=== PATIENT | male | born 1980 | race African-American/Black ===

== ENCOUNTER 2017-06-27 18:58 | Emergency (ER) | payer OTHER ==
[2017-06-27 19:03] VITALS: BP 131/83; PULSE 68; TEMP 98; BMI 28.7
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
[2017-06-27] MEDS ORDERED: IBUPROFEN 400 MG TABLET (FP) PO ONE ×2 (19:43→19:46)
== END 2017-06-27 20:04 | disposition home or self-care (01) ==
LOC: JERFT 18:58
DX: S39.012A Strain of muscle, fascia and tendon of lower back, initial encounter (principal); V43.52XA Car driver injured in collision with other type car in traffic accident, initial encounter; Y92.414 Local residential or business street as the place of occurrence of the external cause; Y93.89 Activity, other specified; Y99.8 Other external cause status
CPT/HCPCS: 99281-25

== ENCOUNTER 2018-10-06 19:24 | Emergency (ER) | payer OTHER | END 2018-10-07 00:40 | disposition home or self-care (01) | LOC: JER 10-07 00:40 | PROC: 3E0333Z Introduction of Anti-inflammatory into Peripheral Vein, Percutaneous Approach (ICD-10-PCS; principal; 2018-10-06) | DX: F07.81 Postconcussional syndrome (principal); V47 Car occupant injured in collision with fixed or stationary object; W06.XXXA Fall from bed, initial encounter; Y93.89 Activity, other specified; Y92.032 Bedroom in apartment as the place of occurrence of the external cause ==

== ENCOUNTER 2018-11-23 11:25 | Emergency (ER) | payer OTHER ==
[2018-11-23 11:32] VITALS: TEMP 98; BMI 27.5
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
[2018-11-23] MEDS ORDERED: METOCLOPRAMIDE HCL INJECTION 10 MG/2 ML VIAL IVPUSH ONE (11:40)
[2018-11-23] MEDS ORDERED: ACETAMINOPHEN 1000 MG/100 ML VIAL (NON FORMULARY) IVPB ONE (11:40)
[2018-11-23] MEDS ORDERED: SODIUM CHLORIDE 1,000 ML IV STA (11:40)
[2018-11-23] MEDS ORDERED: ACETAMINOPHEN INJECTION 100 ML IVPB ONE (11:46)
[2018-11-23] MEDS ORDERED: METOCLOPRAMIDE HCL INJECTION 10 MG/2 ML VIAL ONE (11:46)
[2018-11-23 12:16] LABS: BASO % 0.2 % (0-2.0); EOS % 0.1 % (0-4.5); HEMATOCRIT 41.9 % (35.4-49); LYMPH % 8.7 % (8-40); MCH 32.7 pg (25.7-33.7); MCHC 33.4 g/dl (32.0-35.9); MEAN CELL VOLUME 97.9 fl (80-96); MEAN PLT VOLUME 6.8 fl (7.5-11.1); MONO % 5.6 % (3.8-10.2); NEUT % 85.4 % (42.8-82.8); PLATELET COUNT 195 K/MM3 (134-434); RBC 4.28 M/mm3 (4.00-5.60); RDW 13.1 % (11.9-15.9); WHITE BLOOD COUNT 9.4 K/mm3 (4.0-10.0)
[2018-11-23] MEDS ORDERED: KETOROLAC TROMETHAMINE 30 MG/1 ML VIAL IVPUSH ONE (12:23)
[2018-11-23 12:42] LABS: ALBUMIN 3.6 g/dl (3.4-5.0); BILIRUBIN,TOTAL 0.6 mg/dL (0.2-1); BLOOD UREA NITROGEN 16.2 mg/dL (7-18); CALCIUM 9.2 mg/dL (8.5-10.1); CREATININE 1.2 mg/dL (0.55-1.3); TOT PROT 6.8 g/dl (6.4-8.2)
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
[2018-11-23 17:18] VITALS: BP 135/85; PULSE 74
[2018-11-23] MEDS ORDERED: LIDOCAINE 5% TOPICAL PATCH TP ONE (17:20)
[2018-11-23] MEDS ORDERED: LIDOCAINE 5% TOPICAL PATCH ONE (17:31)
[2018-11-23] MEDS ORDERED: LIDOCAINE PATCH REMOVAL MC SCH (22:00)
== END 2018-11-23 17:44 | disposition home or self-care (01) ==
LOC: JER 11:25
PROC: 3E033NZ Introduction of Analgesics, Hypnotics, Sedatives into Peripheral Vein, Percutaneous Approach (ICD-10-PCS; principal; 2018-11-23)
PROC: 3E0333Z Introduction of Anti-inflammatory into Peripheral Vein, Percutaneous Approach (ICD-10-PCS; 2018-11-23)
PROC: 3E033GC Introduction of Other Therapeutic Substance into Peripheral Vein, Percutaneous Approach (ICD-10-PCS; 2018-11-23)
PROC: 3E033GC Introduction of Other Therapeutic Substance into Peripheral Vein, Percutaneous Approach (ICD-10-PCS; 2018-11-23)
DX: R51 Headache (principal); M54.2 Cervicalgia; G89.29 Other chronic pain; Z87.820 Personal history of traumatic brain injury; V89.2XXS Person injured in unspecified motor-vehicle accident, traffic, sequela
CPT/HCPCS: 36415; 70450-TC; 72125-TC; 72131-TC; 80053; 85025; 99282-25; J0131; J7030

== ENCOUNTER 2019-04-10 03:20 | Emergency (ER) | payer OTHER ==
[2019-04-10 05:03] VITALS: BP 135/82; PULSE 79; TEMP 97.9; BMI 28.7
--- NOTE | 2019-04-10 05:22 | PDOC ---
Attending Attestation - Resident Resident Name: Dav Chacko - ED Attending Attestation I have performed the following: I have examined & evaluated the patient, The case was reviewed & discussed with the resident, I agree w/resident's findings & plan - HPI HPI: 04/10/19 05:42 see resident hpi - Physicial Exam PE: 04/10/19 05:42 see resident exam - Medical Decision Making 04/10/19 05:42 38-year-old male currently under the care of pain management requesting analgesic so he does not have to go by narcotics illegally in the street Patient sleeping, he had to be woken up for his exam complaining of chronic pain He interestingly enough has an appointment with pain management on Sunday He will be discharged with nonnarcotic analgesics including a Lidoderm patch
[2019-04-10] MEDS ORDERED: IBUPROFEN 400 MG TABLET (FP) PO ONE (05:44)
[2019-04-10] MEDS ORDERED: ACETAMINOPHEN 325 MG TABLET (FP) PO ONE (05:44)
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
[2019-04-10] MEDS ORDERED: LIDOCAINE 5% TOPICAL PATCH TP ONE (05:45)
[2019-04-10] MEDS ORDERED: ACETAMINOPHEN 325 MG TABLET (FP) ONE (05:58)
[2019-04-10] MEDS ORDERED: LIDOCAINE 5% TOPICAL PATCH ONE (05:59)
[2019-04-10] MEDS ORDERED: IBUPROFEN 600 MG TABLET (FP) PO ONE (06:00)
[2019-04-10] MEDS ORDERED: LIDOCAINE PATCH REMOVAL MC SCH (22:00)
== END 2019-04-10 06:21 | disposition home or self-care (01) ==
LOC: JER 03:20
DX: M54.2 Cervicalgia (principal); M54.5 Low back pain; G89.29 Other chronic pain
CPT/HCPCS: 99282-25

== ENCOUNTER 2019-04-12 23:24 | Emergency (ER) | payer OTHER ==
[2019-04-12 23:52] VITALS: BMI 28.7
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
[2019-04-13 01:28] VITALS: BP 143/96; PULSE 65; TEMP 98.2
== END 2019-04-13 01:33 | disposition home or self-care (01) ==
LOC: JER 23:24
DX: G89.29 Other chronic pain (principal); M54.2 Cervicalgia; M54.5 Low back pain; V89.2XXS Person injured in unspecified motor-vehicle accident, traffic, sequela
CPT/HCPCS: 99282-25

== ENCOUNTER 2019-04-16 10:44 | Emergency (ER) | payer OTHER ==
[2019-04-16 11:04] VITALS: BP 144/90; PULSE 76; TEMP 98.2; BMI 29.5
--- NOTE | 2019-04-16 12:11 | PDOC ---
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 here for exacerbation Past History - Past Medical History Allergies/Adverse Reactions: Allergies Allergy/AdvReac Type Severity Reaction Status Date / Time No Known Allergies Allergy Verified 04/16/19 11:01 Home Medications: Ambulatory Orders Ibuprofen [Motrin -] 600 mg PO QID #28 tablet 10/06/18 Lidocaine 5% Patch [Lidoderm Patch -] 1 patch TP DAILY #7 patch 11/23/18 Oxycodone HCl/Acetaminophen [Percocet 5-325 mg Tablet] 1 tab PO PRN 11/23/18 Oxycodone HCl 10 mg PO TID PRN #9 tablet MDD 3 04/16/19 COPD: No - Immunization History Td Vaccination: Yes TDAP Vaccination: Yes Immunization Up to Date: Yes - Psycho Social/Smoking Cessation Hx Smoking History: Never smoked Have you smoked in the past 12 months: Yes Number of Cigarettes Smoked Daily: 2 Hx Alcohol Use: Yes Drug/Substance Use Hx: No Substance Use Type: None Review of Systems - Review of Systems Constitutional: Yes: See HPI *Physical Exam - Vital Signs Last Vital Signs Temp Pulse Resp BP Pulse Ox 98.2 F 76 20 144/90 99 04/16/19 11:01 04/16/19 11:01 04/16/19 11:01 04/16/19 11:01 04/16/19 11:01 - Physical Exam 04/16/19 12:09 GENERAL: The patient is awake, alert, and fully oriented, in no acute distress. HEAD: Normal with no signs of trauma. EYES: sclera anicteric, conjunctiva clear. ENT: Ears normal tympanic membranes normal oropharynx clear uvula midline NECK: Normal range of motion LUNGS: Breath sounds equal, clear to auscultation bilaterally. No wheezes, and no crackles. HEART: S1 and S2 without murmur, rub or gallop. ABDOMEN: Soft, nontender, normoactive bowel sounds. No guarding, no rebound. No masses. EXTREMITIES: Normal range of motion, no edema. No clubbing or cyanosis. No cords, erythema, or tenderness. NEUROLOGICAL: Cranial nerves II through XII grossly intact. PSYCH: Normal mood, normal affect. SKIN: Warm, Dry, normal turgor, no rashes or lesions noted. Medical Decision Making - Medical Decision Making 04/16/19 12:09 After long conversation with this patient he tells me he has liver disease it sounds like polycystic liver disease he is on high-dose Motrin at this point I was going to add a steroid however we have come to an agreement where I will give him a couple days of oxycodone to reset his pain cycle and hopefully get him out of pain. He has an appointment with pain management next week Discharge - Discharge Information Problems reviewed: Yes Clinical Impression/Diagnosis: Chronic pain Condition: Stable Disposition: HOME - Admission No - Additional Discharge Information Prescriptions: Oxycodone HCl 10 mg PO TID PRN #9 tablet MDD 3 PRN Reason: Pain - Follow up/Referral - Patient Discharge Instructions Additional Instructions: Return to the emergency room for worsening symptoms and without fail follow-up with pain management as scheduled. Please take the pain medication as directed. - Post Discharge Activity
== END 2019-04-16 12:15 | disposition home or self-care (01) ==
LOC: JERFT 10:44
DX: G89.29 Other chronic pain (principal)
CPT/HCPCS: 99282-25

== ENCOUNTER 2019-04-20 08:56 | Emergency (ER) | payer OTHER ==
[2019-04-20 09:03] VITALS: BP 137/92; PULSE 56; TEMP 97.6; BMI 29.5
[2019-04-20] MEDS ORDERED: KETOROLAC TROMETHAMINE 60 MG/2 ML VIAL IM ONE (09:46)
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
[2019-04-20] MEDS ORDERED: KETOROLAC TROMETHAMINE 60 MG/2 ML VIAL ONE (10:21)
== END 2019-04-20 10:33 | disposition home or self-care (01) ==
LOC: JER 08:56
DX: M25.531 Pain in right wrist (principal); F17.210 Nicotine dependence, cigarettes, uncomplicated
CPT/HCPCS: 99284-25

== ENCOUNTER 2019-04-22 12:33 | Emergency (ER) | payer OTHER ==
[2019-04-22 13:04] VITALS: BP 101/69; PULSE 63; TEMP 98.5; BMI 28.7
--- NOTE | 2019-04-22 13:29 | PDOC ---
History of Present Illness - General Chief Complaint: Pain Stated Complaint: BODY PAIN Time Seen by Provider: 04/22/19 13:17 History Source: Patient - History of Present Illness Occurred: reports: other Pain Location: reports: back Past History - Past Medical History Allergies/Adverse Reactions: Allergies Allergy/AdvReac Type Severity Reaction Status Date / Time No Known Allergies Allergy Verified 04/20/19 09:03 Home Medications: Ambulatory Orders Ibuprofen [Motrin -] 600 mg PO QID #28 tablet 10/06/18 Lidocaine 5% Patch [Lidoderm Patch -] 1 patch TP DAILY #7 patch 11/23/18 Oxycodone HCl/Acetaminophen [Percocet 5-325 mg Tablet] 1 tab PO PRN 11/23/18 Oxycodone HCl 10 mg PO TID PRN #9 tablet MDD 3 04/16/19 COPD: No - Immunization History Td Vaccination: Yes TDAP Vaccination: Yes Immunization Up to Date: Yes - Psycho Social/Smoking Cessation Hx Smoking History: Current every day smoker Have you smoked in the past 12 months: Yes Number of Cigarettes Smoked Daily: 2 Cigars Per Day: 2 Information on smoking cessation initiated: Yes Hx Alcohol Use: No Drug/Substance Use Hx: No Substance Use Type: None Review of Systems - Review of Systems Constitutional: No: Chills, Fever Musculoskeletal: Yes: Back Pain Neurological: No: Numbness, Tingling, Weakness *Physical Exam - Vital Signs Last Vital Signs Temp Pulse Resp BP Pulse Ox 98.5 F 63 18 101/69 99 04/22/19 12:59 04/22/19 12:59 04/22/19 12:59 04/22/19 12:59 04/22/19 12:59 - Physical Exam 04/22/19 13:27 Sitting on exam table and texting on his phone, NAD General Appearance: Yes: Appropriately Dressed. No: Apparent Distress HEENT: positive: Normal Voice Neck: positive: Supple Gastrointestinal/Abdominal: positive: Soft. negative: Tender Musculoskeletal: negative: CVA Tenderness, Vertebral Tenderness Extremity: positive: Normal Inspection Integumentary: positive: Dry, Warm Neurologic: positive: Fully Oriented, Alert, Normal Mood/Affect Medical Decision Making - Medical Decision Making 04/22/19 13:25 38-year-old male, history of chronic lower back pain with history of herniated disc to LS spine per pt, here for his usual lower back pain that is been on and off x1 week. Seen in another ER yesterday and given Toradol and sent home with Motrin and Tylenol but states medications are not relieving his pain. No acute sensory changes, lower extremity weakness, saddle anesthesia or incontinence. Patient states he has an appointment to see a new pain doctor tomorrow see exam Acute on chronic No red flags at this time Exam unremarkable Dc to f/u with his pain doctor at scheduled appointment tomorrow Discharge - Discharge Information Problems reviewed: Yes Clinical Impression/Diagnosis: Chronic low back pain Qualifiers: Back pain laterality: unspecified Sciatica presence: without sciatica Qualified Code(s): M54.5 - Low back pain; G89.29 - Other chronic pain Condition: Good Disposition: HOME - Follow up/Referral - Patient Discharge Instructions Patient Printed Discharge Instructions: DI for Low Back Pain Additional Instructions: Please follow-up with your pain doctor at scheduled appointment tomorrow - Post Discharge Activity
== END 2019-04-22 13:40 | disposition home or self-care (01) ==
LOC: JERFT 12:33
DX: M54.5 Low back pain (principal); G89.29 Other chronic pain
CPT/HCPCS: 99283-25

== ENCOUNTER 2019-04-24 14:09 | Emergency (ER) | payer OTHER ==
[2019-04-24 14:40] VITALS: BP 127/94; PULSE 68; BMI 28.6
--- NOTE | 2019-04-24 16:36 | PDOC ---
History of Present Illness - General Chief Complaint: Chronic pain Stated Complaint: BACK PAIN Time Seen by Provider: 04/24/19 15:49 History Source: Patient Exam Limitations: No Limitations Past History - Travel Traveled outside of the country in the last 30 days: No Close contact w/someone who was outside of country & ill: No - Past Medical History Allergies/Adverse Reactions: Allergies Allergy/AdvReac Type Severity Reaction Status Date / Time No Known Allergies Allergy Verified 04/20/19 09:03 Home Medications: Ambulatory Orders Ibuprofen [Motrin -] 600 mg PO QID #28 tablet 10/06/18 Lidocaine 5% Patch [Lidoderm -] 1 patch TP DAILY #7 patch 11/23/18 Oxycodone HCl/Acetaminophen [Percocet 5-325 mg Tablet] 1 tab PO BID PRN #2 tablet MDD 2 tabs 04/22/19 Oxycodone HCl/Acetaminophen [Percocet 5-325 mg Tablet] 1 tab PO ONCE #2 tablet MDD 1 04/24/19 COPD: No - Immunization History Td Vaccination: Yes TDAP Vaccination: Yes Immunization Up to Date: Yes - Psycho Social/Smoking Cessation Hx Smoking History: Unknown if ever smoked Have you smoked in the past 12 months: Yes Number of Cigarettes Smoked Daily: 2 Cigars Per Day: 2 Hx Alcohol Use: No Drug/Substance Use Hx: No Substance Use Type: None Review of Systems - Review of Systems Able to Perform ROS?: Yes Comments:: 04/24/19 19:34 CONSTITUTIONAL: Present: Generalized pain absent: fever, chills, diaphoresis, generalized weakness, malaise, loss of appetite MUSCULOSKELETAL: Present: generalized myalgia Absent: arthralgia, joint swelling SKIN: Present: Sutures in the right ventral wrist. Absent: rash, itching, pallor HEMATOLOGIC/IMMUNOLOGIC: Absent: easy bleeding, easy bruising, lymphadenopathy, frequent infections ENDOCRINE: Absent: unexplained weight gain, unexplained weight loss, heat intolerance, cold intolerance NEUROLOGIC: Absent: headache, focal weakness or paresthesias, dizziness, unsteady gait, seizure, mental status changes, bladder or bowel incontinence PSYCHIATRIC: Absent: anxiety, depression, suicidal or homicidal ideation, hallucinations. Is the patient limited Polish proficient: No *Physical Exam - Vital Signs Last Vital Signs Temp Pulse Resp BP Pulse Ox 68 16 127/94 99 04/24/19 14:38 04/24/19 14:38 04/24/19 14:38 04/24/19 14:38 - Physical Exam 04/24/19 19:35 GENERAL: Well developed, well nourished. Awake and alert. No acute distress. HEENT: Normocephalic, atraumatic. PERRLA, EOMI. No conjunctival pallor. Sclera are non- icteric. Moist mucous membranes. Oropharynx is clear. NECK: Supple. Full ROM. No lymphadenopathy. MUSCULOSKELETAL Normal range of motion at all joints. No bony deformities or tenderness. No CVA tenderness. EXTREMITIES: No cyanosis. No clubbing. No edema. No calf tenderness. SKIN: 4 vertical mattress sutures placed in the right ventral wrist. Wound is well approximated and well-healed. Warm and dry. Normal capillary refill. No rashes. No jaundice. NEUROLOGICAL: Alert, awake, appropriate. Cranial nerves 2-12 intact. No deficits to light touch and temperature in face, upper extremities and lower extremities. No motor deficits in the in face, upper extremities and lower extremities. Normoreflexic in the upper and lower extremities. Normal speech. Toes are down- going bilaterally. Gait is normal without ataxia. PSYCHIATRIC: Cooperative. Good eye contact. Appropriate mood and affect. Medical Decision Making - Medical Decision Making 04/24/19 19:38 The patient is a 38 y/o M with chronic back pain, global pain syndrome, presents to the ER for pain and suture removal from his R wrist. The patient states he was unable to see his pain specialist due to insurance issues yesterday. He states he is still in pain. He also notes that he has sutures that need to come out. Denies bladder/bowel incontinence and saddle anesthesia. A/P: Pain Pt with global pain syndrome, neurologically intact with no red flags. One percocet given now. 1 pill sent to patient pharmacy so he can get to his appointment tomorrow. Sutures removed. Gave patient primary care follow up Explained to patient that the ER cannot keep prescribing narcotics for him and that he needs to reestablish with a pain management doctor for his symptoms. Wound care instructions given. Pt is comfortable with the plan DC home I discussed the physical exam findings, ancillary test results and final diagnoses with the patient. I answered all of the patient's questions. The patient was satisfied with the care received and felt comfortable with the discharge plan and treatment plan. The Patient agrees to follow up with the primary care physician/specialist within 24-72 hours. Return precautions were given. Discharge - Discharge Information Problems reviewed: Yes Clinical Impression/Diagnosis: Chronic pain Qualifiers: Chronic pain type: other chronic pain Qualified Code(s): G89.29 - Other chronic pain Condition: Stable Disposition: HOME - Admission No - Additional Discharge Information Prescriptions: Oxycodone HCl/Acetaminophen [Percocet 5-325 mg Tablet] 1 tab PO ONCE #2 tablet MDD 1 Prescription Drug Monitoring Program (I-STOP) results: I-STOP reviewed and issues identified - Follow up/Referral Referrals: Tyron Mcghee MD [Staff Physician] - Darron Bran MD [Staff Physician] - - Patient Discharge Instructions Patient Printed Discharge Instructions: DI for Prescription Opioid Use Additional Instructions: Please keep your appointment with your pain specialist for tomorrow I have sent a percocet to the pharmacy for you. You can take it tonight or tomorrow morning, whenever your pain is worse Please make an appointment with primary care for next week to manage your symptoms. A referral has been provided to you Suture removal discharge You had your sutures/logan removed today. Please use bacitracin on the site for the next week. Avoid soaking the area with water for 1 more week as to what the wound fully heal. Follow-up with her primary care doctor as needed Return to the emergency department if you develop fevers, drainage from the site , increased pain, or have any changes in your symptoms. - Post Discharge Activity
== END 2019-04-24 16:37 | disposition home or self-care (01) ==
LOC: JERFT 14:09
DX: G89.4 Chronic pain syndrome (principal); Z48.02 Encounter for removal of sutures
CPT/HCPCS: 99283-25

== ENCOUNTER 2019-04-25 23:35 | Emergency (ER) | payer OTHER ==
[2019-04-25 23:41] VITALS: BP 147/75; PULSE 71; TEMP 97; BMI 28.7
[2019-04-26] MEDS ORDERED: KETOROLAC TROMETHAMINE 30 MG/1 ML VIAL IM ONE (00:42)
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
--- NOTE | 2019-04-26 00:49 | PDOC ---
Attending Attestation - Resident Resident Name: Saravanan Barcenas - ED Attending Attestation I have performed the following: I have examined & evaluated the patient, The case was reviewed & discussed with the resident, I agree w/resident's findings & plan, Exceptions are as noted - HPI HPI: 04/26/19 00:48 38-year-old male with chronic pain presents for pain medicine He has been seen multiple times in this ER including April 10, April 13, April 16, April 20, April 22, and April 24 for diffuse body pain He was supposed to be seen by his pain management doctor on April 20 but apparently was dismissed from that practice He now states he has another appointment on May 01 with a pain management doctor - Physicial Exam PE: 04/26/19 00:49 Tall alert and conversant 38-year-old male ambulating in the ER stating he needs pain medication Head no evidence of acute head trauma Extremities no deformities noted Neuro he is alert and conversant and oriented and ambulating - Medical Decision Making 04/26/19 00:50 When asked about his specific pain sites he had multiple pain sites including his whole body Explained to the patient that he needs to follow-up with his pain management doctor At this time he will not be given any narcotics Recommend he takes NSAIDs for pain
[2019-04-26] MEDS ORDERED: KETOROLAC TROMETHAMINE 30 MG/1 ML VIAL ONE (01:08)
== END 2019-04-26 01:34 | disposition home or self-care (01) ==
LOC: JER 23:35
PROC: 3E0233Z Introduction of Anti-inflammatory into Muscle, Percutaneous Approach (ICD-10-PCS; principal; 2019-04-25)
DX: M79.18 Myalgia, other site (principal); G89.29 Other chronic pain
CPT/HCPCS: 99284-25

== ENCOUNTER 2019-04-26 10:12 | Emergency (ER) | payer OTHER ==
[2019-04-26 10:47] VITALS: BP 160/84; PULSE 79; TEMP 97.7; BMI 28.7
--- NOTE | 2019-04-26 11:50 | PDOC ---
Rapid Medical Evaluation Chief Complaint: Pain Time Seen by Provider: 04/26/19 11:21 Medical Evaluation: Allergies Allergy/AdvReac Type Severity Reaction Status Date / Time No Known Allergies Allergy Verified 04/26/19 10:20 Vital Signs Temp Pulse Resp BP Pulse Ox 97.7 F 79 18 160/84 99 04/26/19 10:20 04/26/19 10:20 04/26/19 10:20 04/26/19 10:20 04/26/19 10:20 04/26/19 11:41 The patient was triaged and was audio recording his encounter. The patient was asked to not record the encounters but he continued to do so. [place] [employer] was called and the patient deleted his recording. [employer] [place] [employer] left the ED. Upon returning to his room to be seen, the patient began a new recording on his phone that I personally saw on 3 different occasions. The patient was asked to turn off the recordings on his phone prior to being seen. He initially lied about the phone recording and stated he was playing games on his phone. I again asked the patient to turn off the recordings on his phone and he refused to do so. He was then told in order to be seen, he needed to turn off his phone recordings. He refused to do so. Security was called and spoke with the patient. After speaking with the patient , security told the patient to return to his room to be seen. He was again asked to turn his phone off prior to being seen and the patient refused. Brief exam: The patient is speaking in full and complete sentences, he is very argumentative. No respiratory distress. He is walking without assistance although he is holding a cane. 04/26/19 12:05 I have discussed the case with Dr. Arnett and she has taken over care of the patient. 04/26/19 12:12 Pt states that his pain management doctor is Dr. Berry at [phone]. The patient has not seen him yet. I have placed a call to the office but it is closed and the answering service is unable to confirm if the patient is an existing patient. Discharge Disposition - Diagnosis Pain - Referrals Referrals: Judi Barnes MD [Primary Care Provider] - - Patient Instructions - Post Discharge Activity
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
[2019-04-26] MEDS ORDERED: KETOROLAC TROMETHAMINE 60 MG/2 ML VIAL IM ONE (12:22)
[2019-04-26] MEDS ORDERED: KETOROLAC TROMETHAMINE 60 MG/2 ML VIAL ONE (12:31)
== END 2019-04-26 13:59 | disposition home or self-care (01) ==
LOC: JER 10:12
PROC: 3E0233Z Introduction of Anti-inflammatory into Muscle, Percutaneous Approach (ICD-10-PCS; principal; 2019-04-26)
DX: G89.29 Other chronic pain (principal); M25.512 Pain in left shoulder; V89.2XXS Person injured in unspecified motor-vehicle accident, traffic, sequela; F17.290 Nicotine dependence, other tobacco product, uncomplicated
CPT/HCPCS: 96372; 99284-25

== ENCOUNTER 2019-04-27 10:03 | Emergency (ER) | payer OTHER ==
[2019-04-27 10:19] VITALS: BP 126/74; PULSE 58; TEMP 98.7; BMI 28.7
--- NOTE | 2019-04-27 11:22 | PDOC ---
History of Present Illness - General Chief Complaint: Pain Stated Complaint: BACK/KNEE PAIN Time Seen by Provider: 04/27/19 11:02 History Source: Patient - History of Present Illness Initial Comments: 04/27/19 11:25 Patient with history of chronic back pain be seen by pain management present with complaint of persistent back pain which does not improve with prescribed NSAIDs given by pain management .patient has been seen here multiple times for same symptoms and keep recording staff despite being advised he cannot record unless given permission to do so which staff does not give permission for patient to record conversation. Patient present with complaint of back pain and report prescribed pain medication does not help him with the pain he needed stronger pain meds. Patient started recording conversation when advised he can only be given NSAIDs and muscle relaxants with orthopedics follow-up and patient report NSAIDS does not help him with his pain. Patient advised he cannot record this provider and will be seen after his stop recording but patient refused to stop recording. Patient reported he has the right as an [place] to record who ever he wants and does not need permission to record them. Patient started saying I need to learn the laws in [place] as he knows people are hired from [employer] due to cheap labor and need to learn [place] law which gives him the right to record anybody he wants to record without their permission. Occurred: reports: other (chronic pain) Past History - Past Medical History Allergies/Adverse Reactions: Allergies Allergy/AdvReac Type Severity Reaction Status Date / Time No Known Allergies Allergy Verified 04/27/19 10:18 Home Medications: Ambulatory Orders Aspirin [ASA -] 0 mg PO DAILY 04/27/19 Ibuprofen [Motrin -] 800 mg PO QID 04/27/19 COPD: No - Immunization History Td Vaccination: Yes TDAP Vaccination: Yes Immunization Up to Date: Yes - Psycho Social/Smoking Cessation Hx Smoking History: Never smoked Have you smoked in the past 12 months: Yes Number of Cigarettes Smoked Daily: 2 Cigars Per Day: 2 Hx Alcohol Use: No Drug/Substance Use Hx: No Substance Use Type: None Review of Systems - Review of Systems Able to Perform ROS?: Yes Constitutional: No: Chills, Fever HEENTM: No: Symptoms Reported Respiratory: No: Symptoms reported Cardiac (ROS): No: Symptoms Reported Musculoskeletal: Yes: Symptoms Reported, See HPI, Back Pain Integumentary: No: Symptoms Reported Neurological: No: Symptoms reported *Physical Exam - Vital Signs Last Vital Signs Temp Pulse Resp BP Pulse Ox 98.7 F 58 L 18 126/74 98 04/27/19 10:15 04/27/19 10:15 04/27/19 10:15 04/27/19 10:15 04/27/19 10:15 - Physical Exam General Appearance: Yes: Nourished, Appropriately Dressed. No: Apparent Distress HEENT: positive: Normal ENT Inspection Respiratory/Chest: negative: Respiratory Distress, Accessory Muscle Use Musculoskeletal: positive: Normal Inspection Extremity: positive: Normal Inspection Integumentary: positive: Normal Color Neurologic: positive: Fully Oriented, Alert, Normal Response Medical Decision Making - Medical Decision Making 04/27/19 11:31 Patient with history of chronic back pain be seen by pain management present with complaint of persistent back pain which does not improve with prescribed NSAIDs given by pain management .patient has been seen here multiple times for same symptoms and keep recording staff despite being advised he cannot record unless given permission to do so which staff does not give permission for patient to record conversation. Patient present with complaint of back pain and report prescribed pain medication does not help him with the pain he needed stronger pain meds. Patient started recording conversation when advised he can only be given NSAIDs and muscle relaxants with orthopedics follow-up and patient report NSAIDS does not help him with his pain. Patient advised he cannot record this provider and will be seen after his stop recording but patient refused to stop recording. Patient reported he has the right as an [place] to record who ever he wants and does not need permission to record them. Patient started saying I need to learn the laws in [place] as he knows people are hired from [employer] due to cheap labor and need to learn [place] law which gives him the right to record anybody he wants to record without their permission. Patient walking in the room without support of his cane with normal gait in NAD. Patient offered Nsaid to help with pain which patient refused and wants a more stronger pain medication.Patient medically stable for discharge to continue home . Patient here for narcotic and advised he will not be given any narcotic Security called to escort patient out as patient refused to stop recording staff. Patient refused to leave despite being asked by security to leave 04/27/19 11:37 Chastity HERNANDEZ called by security to escort patient out of the ED Discharge - Discharge Information Problems reviewed: Yes Clinical Impression/Diagnosis: Muscle ache Back strain Qualifiers: Encounter type: subsequent encounter Qualified Code(s): S39.012D - Strain of muscle, fascia and tendon of lower back, subsequent encounter Condition: Stable Disposition: HOME - Admission No - Follow up/Referral - Patient Discharge Instructions Additional Instructions: Continue with your pain management medication as needed for pain and follow-up back with your pain management as discussed. You can take prescribed Motrin as needed for pain continue see your pain management - Post Discharge Activity
== END 2019-04-27 11:52 | disposition home or self-care (01) ==
LOC: JERFT 10:03
DX: M79.18 Myalgia, other site (principal); M54.5 Low back pain; G89.29 Other chronic pain
CPT/HCPCS: 99281-25

== ENCOUNTER 2019-05-04 17:50 | Emergency (ER) | payer OTHER ==
[2019-05-04 17:54] VITALS: BP 119/72; PULSE 66; TEMP 97.3; BMI 28.7
[2019-05-04] MEDS ORDERED: ACETAMINOPHEN 500 MG TABLET (FP) PO ONE (18:08)
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
== END 2019-05-04 18:25 | disposition home or self-care (01) ==
LOC: JERFT 17:50
DX: G89.29 Other chronic pain (principal); M54.5 Low back pain; M25.512 Pain in left shoulder; M25.561 Pain in right knee; M25.562 Pain in left knee
CPT/HCPCS: 99282-25

== ENCOUNTER 2019-05-19 14:31 | Emergency (ER) | payer OTHER ==
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
[2019-05-19 15:22] VITALS: BP 107/71; PULSE 86; TEMP 97.8; BMI 28.7
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
== END 2019-05-19 16:06 | disposition home or self-care (01) ==
LOC: JERFT 14:31
DX: Z04.1 Encounter for examination and observation following transport accident (principal); M54.5 Low back pain; V49.49XA Driver injured in collision with other motor vehicles in traffic accident, initial encounter; Y92.488 Other paved roadways as the place of occurrence of the external cause; Y93.89 Activity, other specified; Y99.8 Other external cause status
CPT/HCPCS: 99281-25

== ENCOUNTER 2020-06-29 17:06 | Emergency (ER) | payer OTHER ==
[2020-06-29 17:42] VITALS: BP 124/86; PULSE 81; TEMP 97.5; BMI 27.5
[2020-06-29] MEDS ORDERED: ACETAMINOPHEN 325 MG TABLET (FP) PO ONE (18:14)
[2020-06-29] MEDS ORDERED: ACETAMINOPHEN 325 MG TABLET (FP) ONE (18:15)
== END 2020-06-29 18:19 | disposition home or self-care (01) ==
LOC: JERFT 17:06
DX: Z48.02 Encounter for removal of sutures (principal)
CPT/HCPCS: 99281-25

== ENCOUNTER 2022-10-29 14:17 | Emergency (ER) | payer OTHER ==
[2022-10-29 14:25] VITALS: BP 110/71; PULSE 61; RESP 18; TEMP 98; BMI 25.9
[2022-10-29 15:50] LABS: BASO % 0.4 % (0-2.0); EOS % 2.2 % (0-4.5); HEMATOCRIT 40.5 % (35.4-49); HEMOGLOBIN 13.7 GM/dL (11.7-16.9); LYMPH % 7.5 % (8-40); MCH 32.2 pg (25.7-33.7); MCHC 33.9 g/dl (32.0-35.9); MEAN CELL VOLUME 94.9 fl (80-96); MEAN PLT VOLUME 7.4 fl (7.5-11.1); NEUT % 82.9 % (42.8-82.8); PLATELET COUNT 222 10^3/uL (134-434); RBC 4.27 M/mm3 (4.00-5.60); RDW 12.4 % (11.9-15.9); WHITE BLOOD COUNT 11.9 K/mm3 (4.0-10.0)
[2022-10-29 15:55] LABS: INR 1.07 (0.83-1.09); PROTHROMBIN TIME (PATIENT) 12.4 SEC (9.7-13.0)
[2022-10-29] MEDS ORDERED: morphine CARPU-JECT 4 MG/1 ML DISP.SYRIN IVPUSH ONE (15:59)
[2022-10-29 16:12] LABS: POTASSIUM 5.3 mmol/L (3.5-5.1)
[2022-10-29 16:14] LABS: ALBUMIN 3.5 g/dl (3.4-5.0); CALCIUM 9.1 mg/dL (8.5-10.1)
[2022-10-29 16:18] LABS: CREATININE 1.2 mg/dL (0.55-1.3)
[2022-10-29 16:19] LABS: BILIRUBIN,TOTAL 1.1 mg/dL (0.2-1)
[2022-10-29 16:20] LABS: TOT PROT 7.1 g/dl (6.4-8.2)
[2022-10-29] MEDS ORDERED: morphine SULFATE 4 MG/ML VIAL ONE (16:39)
[2022-10-29] MEDS ORDERED: SODIUM CHLORIDE 0.9% 500 ML INFUS.BAG IV ONE (18:25)
== END 2022-10-29 23:28 | disposition home or self-care (01) ==
LOC: JER 14:17
PROC: 3E033NZ Introduction of Analgesics, Hypnotics, Sedatives into Peripheral Vein, Percutaneous Approach (ICD-10-PCS; principal; 2022-10-29)
DX: M25.531 Pain in right wrist (principal); M25.532 Pain in left wrist; M79.641 Pain in right hand; M79.642 Pain in left hand; R10.9 Unspecified abdominal pain; V18.0XXA Pedal cycle driver injured in noncollision transport accident in nontraffic accident, initial encounter
CPT/HCPCS: 36415; 73110-TC-LT-FY; 73110-TC-RT-FY; 73130-TC-LT-FY; 73130-TC-RT-FY; 74177-TC; 80053; 85025; 85610; 86850; 86900; 86901; 93005; 93010; 99285-25; Q9967

== ENCOUNTER 2022-11-11 10:19 | Emergency (ER) | payer OTHER ==
[2022-11-11 10:37] VITALS: BP 118/78; PULSE 86; RESP 18; TEMP 98.8; BMI 25.4
== END 2022-11-11 11:41 | disposition home or self-care (01) ==
LOC: JER 10:19
DX: R10.33 Periumbilical pain (principal); K42.9 Umbilical hernia without obstruction or gangrene; K59.01 Slow transit constipation
CPT/HCPCS: 74019-TC-FY; 99283-25

== ENCOUNTER 2022-11-16 09:21 | Emergency (ER) | payer OTHER ==
[2022-11-16 09:51] VITALS: RESP 18; BMI 25.9
[2022-11-16] MEDS ORDERED: SODIUM CHLORIDE 0.9% 500 ML INFUS.BAG IV ONE (11:13)
[2022-11-16] MEDS ORDERED: ACETAMINOPHEN 500 MG TABLET (FP) PO ONE (11:15)
[2022-11-16] MEDS ORDERED: ACETAMINOPHEN 500 MG TABLET (FP) ONE (12:06)
[2022-11-16 12:08] LABS: BASO % 0.8 % (0-2.0); EOS % 3.8 % (0-4.5); LYMPH % 15.7 % (8-40); MCH 31.7 pg (25.7-33.7); MCHC 32.6 g/dl (32.0-35.9); MEAN CELL VOLUME 97.4 fl (80-96); MEAN PLT VOLUME 8.6 fl (7.5-11.1); MONO % 7.8 % (3.8-10.2); NEUT % 71.9 % (42.8-82.8); PLATELET COUNT 187 10^3/uL (134-434); RBC 4.42 M/mm3 (4.00-5.60); RDW 12.3 % (11.9-15.9); WHITE BLOOD COUNT 7.2 K/mm3 (4.0-10.0)
[2022-11-16] MEDS ORDERED: FAMOTIDINE 20 MG/50 ML IVPB 20 MG/50 ML MG IVPB ONE ×2 (12:17→12:36)
[2022-11-16] MEDS ORDERED: KETOROLAC TROMETHAMINE 30 MG/1 ML VIAL IVPUSH ONE (12:17)
[2022-11-16 12:28] LABS: POTASSIUM 4.4 mmol/L (3.5-5.1)
[2022-11-16 12:30] LABS: BLOOD UREA NITROGEN 15.9 mg/dL (7-18); CALCIUM 9.2 mg/dL (8.5-10.1)
[2022-11-16 12:32] LABS: ALBUMIN 3.7 g/dl (3.4-5.0)
[2022-11-16 12:34] LABS: CREATININE 1.1 mg/dL (0.55-1.3)
[2022-11-16] MEDS ORDERED: KETOROLAC TROMETHAMINE 30 MG/1 ML VIAL ONE (12:35)
[2022-11-16 12:36] LABS: BILIRUBIN,TOTAL 1.3 mg/dL (0.2-1); TOT PROT 7.3 g/dl (6.4-8.2)
[2022-11-16 16:39] VITALS: BP 110/68; PULSE 66; TEMP 97.8
== END 2022-11-16 16:39 | disposition home or self-care (01) ==
LOC: JER 09:21
PROC: 3E033GC Introduction of Other Therapeutic Substance into Peripheral Vein, Percutaneous Approach (ICD-10-PCS; principal; 2022-11-16)
PROC: 3E033NZ Introduction of Analgesics, Hypnotics, Sedatives into Peripheral Vein, Percutaneous Approach (ICD-10-PCS; 2022-11-16)
PROC: 3E0333Z Introduction of Anti-inflammatory into Peripheral Vein, Percutaneous Approach (ICD-10-PCS; 2022-11-16)
DX: R10.84 Generalized abdominal pain (principal); S30.1XXA Contusion of abdominal wall, initial encounter; X58.XXXA Exposure to other specified factors, initial encounter
CPT/HCPCS: 36415; 74177-TC; 80053; 85025; 99285-25; Q9967

== ENCOUNTER 2022-11-21 08:04 | Emergency (ER) | payer OTHER ==
[2022-11-21 08:13] VITALS: BP 133/85; PULSE 71; RESP 20; TEMP 97.9
== END 2022-11-21 10:24 | disposition home or self-care (01) ==
LOC: JER 08:04
DX: R10.33 Periumbilical pain (principal); S30.1XXA Contusion of abdominal wall, initial encounter; V19.9XXA Pedal cyclist (driver) (passenger) injured in unspecified traffic accident, initial encounter
CPT/HCPCS: 99283-25; 99284-25

== ENCOUNTER 2022-12-28 08:10 | Emergency (ER) | payer OTHER ==
[2022-12-28 08:15] VITALS: BP 115/68; PULSE 67; RESP 18; TEMP 98; BMI 25.9
[2022-12-28] MEDS ORDERED: ACETAMINOPHEN 500 MG TABLET (FP) PO ONE (10:28)
[2022-12-28] MEDS ORDERED: ACETAMINOPHEN 500 MG TABLET (FP) ONE (10:31)
[2022-12-28 11:33] LABS: BASO % 0.8 % (0-2.0); EOS % 2.9 % (0-4.5); HEMATOCRIT 41.6 % (35.4-49); HEMOGLOBIN 14.8 GM/dL (11.7-16.9); LYMPH % 14.7 % (8-40); MCH 33.5 pg (25.7-33.7); MCHC 35.6 g/dl (32.0-35.9); MEAN CELL VOLUME 93.9 fl (80-96); MEAN PLT VOLUME 7.3 fl (7.5-11.1); MONO % 7.9 % (3.8-10.2); NEUT % 73.7 % (42.8-82.8); PLATELET COUNT 262 10^3/uL (134-434); RBC 4.43 M/mm3 (4.00-5.60); RDW 12.4 % (11.9-15.9); WHITE BLOOD COUNT 7.6 K/mm3 (4.0-10.0)
[2022-12-28 11:57] LABS: POTASSIUM 4.3 mmol/L (3.5-5.1)
[2022-12-28 12:00] LABS: CALCIUM 8.7 mg/dL (8.5-10.1)
[2022-12-28 12:01] LABS: ALBUMIN 3.8 g/dl (3.4-5.0); BLOOD UREA NITROGEN 11.6 mg/dL (7-18)
[2022-12-28 12:04] LABS: CREATININE 1.2 mg/dL (0.55-1.3)
[2022-12-28 12:05] LABS: BILIRUBIN,TOTAL 0.9 mg/dL (0.2-1); TOT PROT 7.5 g/dl (6.4-8.2)
[2022-12-28] MEDS ORDERED: NAPROXEN 500 MG TABLET PO ONE (12:23)
[2022-12-28] MEDS ORDERED: NAPROXEN 500 MG TABLET ONE (12:29)
== END 2022-12-28 12:39 | disposition home or self-care (01) ==
LOC: JERFT 08:10
DX: R10.32 Left lower quadrant pain (principal)
CPT/HCPCS: 36415; 80053; 85025; 99283-25

== ENCOUNTER 2022-12-31 09:00 | Emergency (ER) | payer OTHER ==
[2022-12-31 09:10] VITALS: BP 122/75; PULSE 85; RESP 18; TEMP 98; BMI 26.2
[2022-12-31] MEDS ORDERED: DIPHTH,PERTUSS(ACELL),TET 0.5 ML DISP.SYRIN IM ONE ×2 (09:46→11:38)
== END 2022-12-31 13:17 | disposition home or self-care (01) ==
LOC: JER 09:00
PROC: 0HQKXZZ Repair Right Lower Leg Skin, External Approach (ICD-10-PCS; principal; 2022-12-31)
DX: S81.811A Laceration without foreign body, right lower leg, initial encounter (principal); W45.8XXA Other foreign body or object entering through skin, initial encounter
CPT/HCPCS: 73590-TC-RT-FY; 99283-25

== ENCOUNTER 2023-01-03 08:42 | Emergency (ER) | payer OTHER ==
[2023-01-03 08:53] VITALS: BP 120/83; PULSE 58; RESP 18; TEMP 96.4; BMI 25.9
== END 2023-01-03 11:50 | disposition home or self-care (01) ==
LOC: JER 08:42
DX: R10.32 Left lower quadrant pain (principal)
CPT/HCPCS: 74176-TC; 99284-25

== ENCOUNTER 2023-01-05 05:09 | Emergency (ER) | payer OTHER ==
[2023-01-05 05:20] VITALS: BMI 25.9
[2023-01-05] MEDS ORDERED: FAMOTIDINE 20 MG TABLET PO ONE (05:41)
[2023-01-05] MEDS ORDERED: FAMOTIDINE 20 MG TABLET ONE (05:43)
[2023-01-05 06:03] VITALS: BP 118/86; PULSE 74; RESP 20; TEMP 97.5
== END 2023-01-05 06:03 | disposition home or self-care (01) ==
LOC: JER 05:09
DX: R10.32 Left lower quadrant pain (principal); M79.604 Pain in right leg; R51.9 Headache, unspecified
CPT/HCPCS: 99283-25

== ENCOUNTER 2023-07-03 09:52 | Emergency (ER) | payer OTHER ==
[2023-07-03 09:57] VITALS: TEMP 98.3; BMI 26.9
[2023-07-03] MEDS ORDERED: ACETAMINOPHEN 325 MG TABLET (FP) ONE (10:48)
[2023-07-03] MEDS: ACETAMINOPHEN 500 MG TABLET (FP) PO ONE (10:55)
[2023-07-03] MEDS ORDERED: KETOROLAC TROMETHAMINE 30 MG/1 ML VIAL ONE (12:53)
[2023-07-03] MEDS: KETOROLAC TROMETHAMINE 30 MG/1 ML VIAL IM ONE (12:58)
[2023-07-03 12:59] VITALS: BP 131/77; PULSE 75; RESP 18
== END 2023-07-03 12:59 | disposition home or self-care (01) ==
LOC: JER 09:52
PROC: 3E023GC Introduction of Other Therapeutic Substance into Muscle, Percutaneous Approach (ICD-10-PCS; principal; 2023-07-03)
DX: S30.1XXA Contusion of abdominal wall, initial encounter (principal); X58.XXXA Exposure to other specified factors, initial encounter
CPT/HCPCS: 74176-TC; 96372; 99284-25

== ENCOUNTER 2023-07-12 17:31 | Emergency (ER) | payer OTHER ==
[2023-07-12 17:39] VITALS: BP 121/72; PULSE 73; RESP 18; TEMP 98; BMI 28.2
[2023-07-12] MEDS ORDERED: KETOROLAC TROMETHAMINE 15 MG/ML VIAL ONE (18:11)
[2023-07-12] MEDS: SODIUM CHLORIDE 0.9% 1000 ML INFUS.BAG IV ONE (18:14)
[2023-07-12] MEDS: KETOROLAC TROMETHAMINE 15 MG/ML VIAL IVPUSH ONE (18:14)
[2023-07-12] MEDS ORDERED: KETOROLAC TROMETHAMINE 30 MG/1 ML VIAL ONE (18:15)
[2023-07-12] MEDS: KETOROLAC TROMETHAMINE 30 MG/1 ML VIAL IM ONE (18:37)
[2023-07-12 18:52] LABS: URINE APPEARANCE CLEAR; URINE BILIRUBIN NEGATIVE (NEGATIVE); URINE COLOR YELLOW; URINE GLUCOSE (UA) NEGATIVE (NEGATIVE); URINE KETONE NEGATIVE (NEGATIVE); URINE LEUK ESTERASE NEGATIVE (NEGATIVE); URINE NITRITE NEGATIVE (NEGATIVE); URINE PROTEIN NEGATIVE (NEGATIVE); URINE UROBILINOGEN 0.2 mg/dL (0.2-1.0)
[2023-07-12 18:55] LABS: BASO % 0.8 % (0-2.0); EOS % 4.2 % (0-4.5); HEMATOCRIT 40.1 % (35.4-49); HEMOGLOBIN 13.5 GM/dL (11.7-16.9); LYMPH % 13.3 % (8-40); MCH 31.8 pg (25.7-33.7); MCHC 33.5 g/dl (32.0-35.9); MEAN CELL VOLUME 94.8 fl (80-96); MEAN PLT VOLUME 7.9 fl (7.5-11.1); MONO % 9.4 % (3.8-10.2); NEUT % 72.3 % (42.8-82.8); PLATELET COUNT 218 10^3/uL (134-434); RBC 4.23 M/mm3 (4.00-5.60); RDW 13.2 % (11.9-15.9); WHITE BLOOD COUNT 7.8 K/mm3 (4.0-10.0)
[2023-07-12 19:12] LABS: ALBUMIN 3.8 g/dl (3.4-5.0); BLOOD UREA NITROGEN 18.1 mg/dL (7-18); CALCIUM 9.2 mg/dL (8.5-10.1)
[2023-07-12 19:15] LABS: CREATININE 1.2 mg/dL (0.55-1.3)
[2023-07-12 19:17] LABS: TOT PROT 7.2 g/dl (6.4-8.2)
== END 2023-07-12 19:38 | disposition home or self-care (01) ==
LOC: JER 17:31
PROC: 3E0233Z Introduction of Anti-inflammatory into Muscle, Percutaneous Approach (ICD-10-PCS; principal; 2023-07-12)
DX: R10.30 Lower abdominal pain, unspecified (principal); G89.29 Other chronic pain; K59.00 Constipation, unspecified; R74.01 Elevation of levels of liver transaminase levels; M54.50 Low back pain, unspecified
CPT/HCPCS: 36415; 74019-TC-FY; 80053; 81003; 83690; 85025; 99284-25

== ENCOUNTER 2023-07-16 11:52 | Emergency (ER) | payer OTHER ==
[2023-07-16 12:01] VITALS: BP 127/74; PULSE 80; RESP 17; TEMP 98; BMI 27.5
[2023-07-16] MEDS ORDERED: KETOROLAC TROMETHAMINE 30 MG/1 ML VIAL ONE (13:47)
[2023-07-16] MEDS: KETOROLAC TROMETHAMINE 30 MG/1 ML VIAL IM ONE (13:51)
== END 2023-07-16 14:15 | disposition home or self-care (01) ==
LOC: JER 11:52
PROC: 3E0233Z Introduction of Anti-inflammatory into Muscle, Percutaneous Approach (ICD-10-PCS; principal; 2023-07-16)
DX: R10.9 Unspecified abdominal pain (principal)
CPT/HCPCS: 99284-25

== ENCOUNTER 2023-07-20 04:19 | Emergency (ER) | payer OTHER ==
[2023-07-20 04:33] VITALS: BP 123/86; TEMP 97.7; BMI 25.0
[2023-07-20 04:39] VITALS: RESP 16
[2023-07-20 04:59] VITALS: PULSE 58
[2023-07-20] MEDS: MAG HYDROX/AL HYDROX/SIMETH 30 ML UNIT-DOSE CUP PO ONE (05:10)
[2023-07-20] MEDS: FAMOTIDINE 20 MG TABLET PO ONE (05:10)
[2023-07-20] MEDS: ACETAMINOPHEN 500 MG TABLET (FP) PO ONE (05:10)
[2023-07-20] MEDS ORDERED: FAMOTIDINE 20 MG TABLET ONE (05:12)
[2023-07-20] MEDS ORDERED: MAG HYDROX/AL HYDROX/SIMETH 30 ML UNIT-DOSE CUP ONE (05:12)
[2023-07-20] MEDS ORDERED: ACETAMINOPHEN 325 MG TABLET (FP) ONE (05:12)
[2023-07-20] MEDS: KETOROLAC TROMETHAMINE 30 MG/1 ML VIAL IM ONE (06:21)
[2023-07-20] MEDS ORDERED: KETOROLAC TROMETHAMINE 30 MG/1 ML VIAL ONE (06:28)
== END 2023-07-20 06:38 | disposition home or self-care (01) ==
LOC: JER 04:19
PROC: 3E0233Z Introduction of Anti-inflammatory into Muscle, Percutaneous Approach (ICD-10-PCS; principal; 2023-07-20)
DX: R10.9 Unspecified abdominal pain (principal); G89.29 Other chronic pain; M54.9 Dorsalgia, unspecified; R51.9 Headache, unspecified
CPT/HCPCS: 99284-25

== ENCOUNTER 2023-07-23 06:47 | Emergency (ER) | payer OTHER ==
[2023-07-23 06:57] VITALS: BP 133/82; PULSE 73; RESP 18; TEMP 97.5; BMI 23.7
[2023-07-23] MEDS ORDERED: IBUPROFEN 600 MG TABLET (FP) PO ONE (07:47)
[2023-07-23] MEDS: IBUPROFEN 600 MG TABLET (FP) PO ONE (07:48)
== END 2023-07-23 08:11 | disposition home or self-care (01) ==
LOC: JER 06:47
DX: R51.9 Headache, unspecified (principal); G89.29 Other chronic pain
CPT/HCPCS: 99283-25

== ENCOUNTER 2023-07-23 11:24 | Emergency (ER) | payer OTHER ==
[2023-07-23 11:32] VITALS: BP 124/70; PULSE 74; RESP 18; TEMP 98; BMI 28.7
[2023-07-23] MEDS ORDERED: KETOROLAC TROMETHAMINE 15 MG/ML VIAL ONE (11:46)
[2023-07-23] MEDS: KETOROLAC TROMETHAMINE 15 MG/ML VIAL IM ONE (11:53)
== END 2023-07-23 11:59 | disposition home or self-care (01) ==
LOC: JER 11:24
PROC: 3E0233Z Introduction of Anti-inflammatory into Muscle, Percutaneous Approach (ICD-10-PCS; principal; 2023-07-23)
DX: G89.29 Other chronic pain (principal)
CPT/HCPCS: 96372; 99284-25

== ENCOUNTER 2023-07-25 03:53 | Emergency (ER) | payer OTHER ==
[2023-07-25 04:00] VITALS: BP 115/75; PULSE 69; RESP 18; TEMP 97.6; BMI 28.1
== END 2023-07-25 04:31 | disposition home or self-care (01) ==
LOC: JER 03:53
DX: G89.29 Other chronic pain (principal); M54.9 Dorsalgia, unspecified
CPT/HCPCS: 99282-25

== ENCOUNTER 2023-07-29 10:52 | Emergency (ER) | payer OTHER ==
[2023-07-29 10:57] VITALS: BP 138/74; PULSE 72; RESP 18; TEMP 98.6; BMI 27.5
== END 2023-07-29 11:37 | disposition home or self-care (01) ==
LOC: JERFT 10:52
DX: G89.29 Other chronic pain (principal)
CPT/HCPCS: 99282-25

== ENCOUNTER 2023-07-31 08:23 | Inpatient (IN) | payer OTHER ==
[2023-07-31 09:03] VITALS: BMI 27.7
[2023-07-31] MEDS ORDERED: NALOXONE HCL 0.4 MG/ML VIAL IVPUSH PRN (09:57)
[2023-07-31] MEDS ORDERED: NALOXONE (NYS OPIOID OVERDOSE PROGRAM) 4 MG/0.1 ML SPRAY NS PRN (09:57)
[2023-07-31] MEDS ORDERED: guaiFENesin 600 MG TABLET.ER (FP) PO PRN (09:57)
[2023-07-31] MEDS ORDERED: BENZONATATE 200 MG CAPSULE PO PRN (09:57)
[2023-07-31] MEDS ORDERED: BENZOCAINE/MENTHOL (CHLORASEPTIC ) LOZENGE MM PRN (09:57)
[2023-07-31] MEDS ORDERED: POLYETHYLENE GLYCOL (HEALTHYLAX) 3350 17 GM PACKET PO PRN (09:57)
[2023-07-31] MEDS ORDERED: IBUPROFEN 400 MG TABLET (FP) PO PRN (09:57)
[2023-07-31] MEDS ORDERED: LOPERAMIDE HCL 2 MG CAPSULE PO PRN (09:57)
[2023-07-31] MEDS ORDERED: ACETAMINOPHEN 500 MG TABLET (FP) PO PRN (10:00)
[2023-07-31] MEDS: GABAPENTIN 300 MG CAPSULE PO SCH (10:51)
[2023-07-31] MEDS: PANTOPRAZOLE 40 MG TABLET PO SCH (10:52)
[2023-07-31] MEDS: POLYETHYLENE GLYCOL (HEALTHYLAX) 3350 17 GM PACKET PO SCH (10:52)
[2023-07-31] MEDS: NAPROXEN 500 MG TABLET PO SCH (10:52)
[2023-07-31] MEDS ORDERED: PRENATAL VITAMINS W/ FOLIC ACID TABLET (FP) PO ONE (10:53)
[2023-07-31] MEDS ORDERED: NICOTINE 14 MG/24 HOURS TOPICAL PATCH TD ONE (10:53)
[2023-07-31] MEDS: PRENATAL VITAMINS W/ FOLIC ACID TABLET (FP) PO SCH (10:54)
[2023-07-31] MEDS: NICOTINE 14 MG/24 HOURS TOPICAL PATCH TD SCH (10:54)
[2023-07-31] MEDS: IBUPROFEN 600 MG TABLET (FP) PO PRN (15:06)
[2023-07-31] MEDS: MAGNESIUM HYDROX 2400MG/30ML ORAL SUSPENSION 30 ML CUP PO PRN (15:07)
[2023-07-31] MEDS: METHOCARBAMOL 500 MG TABLET PO PRN (17:47)
[2023-07-31] MEDS: ACETAMINOPHEN 325 MG TABLET (FP) PO PRN (17:47)
[2023-07-31] MEDS: hydrOXYzine PAMOATE 25 MG CAPSULE (FP) PO PRN (17:47)
[2023-07-31] MEDS: MAG HYDROX/AL HYDROX/SIMETH 30 ML UNIT-DOSE CUP PO PRN (19:40)
[2023-07-31] MEDS: THIAMINE 100 MG TABLET PO SCH (21:34)
[2023-07-31] MEDS: MELATONIN 5 MG TABLETS PO SCH (21:34)
[2023-08-01 06:02] VITALS: BP 126/83; PULSE 73; RESP 18; TEMP 97.5
== END 2023-08-01 06:05 | disposition left against medical advice (07) | DRG 770 ==
LOC: YASAS 08:23 → Y3NR 12:56 → Y3W 18:46
PROVIDERS: ADMIT Allergy & Immunology; ATTEND Psychiatry & Neurology Pain Medicine
PROC: HZ42ZZZ Group Counseling for Substance Abuse Treatment, Cognitive-Behavioral (ICD-10-PCS; principal; 2023-07-31)
DX: F16.20 Hallucinogen dependence, uncomplicated (principal); F17.210 Nicotine dependence, cigarettes, uncomplicated; F31.9 Bipolar disorder, unspecified; F41.9 Anxiety disorder, unspecified; F43.10 Post-traumatic stress disorder, unspecified; M54.50 Low back pain, unspecified; G89.29 Other chronic pain; Z87.820 Personal history of traumatic brain injury; Z59.00 Homelessness unspecified
CPT/HCPCS: 36415; 80305; 80307; 86803; 87811; 93005; 93010

== ENCOUNTER 2023-08-24 20:33 | Emergency (ER) | payer OTHER ==
[2023-08-24 21:02] VITALS: BP 103/67; PULSE 72; RESP 20; TEMP 98.3; BMI 28.7
[2023-08-24] MEDS ORDERED: ACETAMINOPHEN 325 MG TABLET (FP) ONE (21:03)
[2023-08-24] MEDS ORDERED: LIDOCAINE 5% TOPICAL PATCH ONE (21:05)
[2023-08-24] MEDS ORDERED: IBUPROFEN 400 MG TABLET (FP) PO ONE (21:20)
[2023-08-24] MEDS: ACETAMINOPHEN 500 MG TABLET (FP) PO ONE (21:21)
[2023-08-24] MEDS: LIDOCAINE 4% PATCH TP ONE (21:22)
[2023-08-24] MEDS: IBUPROFEN 400 MG TABLET (FP) PO ONE (21:22)
[2023-08-24] MEDS ORDERED: LIDOCAINE PATCH REMOVAL MC SCH (22:00)
== END 2023-08-24 22:09 | disposition home or self-care (01) ==
LOC: JER 20:33
DX: M25.562 Pain in left knee (principal); M17.12 Unilateral primary osteoarthritis, left knee; W10.9XXA Fall (on) (from) unspecified stairs and steps, initial encounter; Y93.01 Activity, walking, marching and hiking
CPT/HCPCS: 73562-TC-LT-FY; 99283-25

== ENCOUNTER 2023-09-01 21:10 | Emergency (ER) | payer OTHER ==
[2023-09-01 21:17] VITALS: BP 134/78; PULSE 78; RESP 20; TEMP 98.3; BMI 27.5
[2023-09-01] MEDS ORDERED: IBUPROFEN 400 MG TABLET (FP) PO ONE (21:37)
[2023-09-01] MEDS: IBUPROFEN 400 MG TABLET (FP) PO ONE (21:41)
[2023-09-01] MEDS ORDERED: ACETAMINOPHEN 325 MG TABLET (FP) ONE (23:41)
[2023-09-02] MEDS: ACETAMINOPHEN 500 MG TABLET (FP) PO ONE (00:03)
== END 2023-09-02 00:09 | disposition home or self-care (01) ==
LOC: JER 21:10
DX: S52.502A Unspecified fracture of the lower end of left radius, initial encounter for closed fracture (principal); M79.10 Myalgia, unspecified site; Y04.8XXA Assault by other bodily force, initial encounter
CPT/HCPCS: 73090-TC-LT-FY; 73110-TC-LT-FY; 73130-TC-LT-FY; 73562-TC-LT-FY; 99284-25

== ENCOUNTER 2023-09-03 22:29 | Emergency (ER) | payer OTHER ==
[2023-09-03 22:33] VITALS: BP 147/87; PULSE 80; RESP 16; TEMP 98.4; BMI 23.7
[2023-09-03] MEDS ORDERED: LIDOCAINE 4% PATCH TP ONE (23:21)
[2023-09-03] MEDS ORDERED: CYCLOBENZAPRINE HCL 10 MG TABLET (FP) ONE (23:21)
[2023-09-03] MEDS ORDERED: KETOROLAC TROMETHAMINE 30 MG/1 ML VIAL ONE (23:21)
[2023-09-03] MEDS: KETOROLAC TROMETHAMINE 30 MG/1 ML VIAL IM ONE (23:31)
[2023-09-03] MEDS: LIDOCAINE 4% PATCH TP ONE (23:31)
[2023-09-03] MEDS: CYCLOBENZAPRINE HCL 10 MG TABLET (FP) PO ONE (23:31)
[2023-09-04] MEDS ORDERED: LIDOCAINE PATCH REMOVAL MC ONE (11:00)
== END 2023-09-03 23:34 | disposition home or self-care (01) ==
LOC: JER 22:29
PROC: 3E0133Z Introduction of Anti-inflammatory into Subcutaneous Tissue, Percutaneous Approach (ICD-10-PCS; principal; 2023-09-03)
DX: M54.6 Pain in thoracic spine (principal); M54.50 Low back pain, unspecified; G89.29 Other chronic pain; X50.0XXA Overexertion from strenuous movement or load, initial encounter
CPT/HCPCS: 96372; 99284-25

== ENCOUNTER 2023-09-11 16:24 | Emergency (ER) | payer OTHER ==
[2023-09-11 16:34] VITALS: BP 132/70; PULSE 69; RESP 18; TEMP 98.3; BMI 27.5
[2023-09-11] MEDS ORDERED: KETOROLAC TROMETHAMINE 30 MG/1 ML VIAL ONE (17:34)
[2023-09-11] MEDS ORDERED: LIDOCAINE 4% PATCH TP ONE (17:34)
[2023-09-11] MEDS: KETOROLAC TROMETHAMINE 30 MG/1 ML VIAL IM ONE (17:45)
[2023-09-11] MEDS: LIDOCAINE 4% PATCH TP ONE (17:47)
== END 2023-09-11 19:05 | disposition home or self-care (01) ==
LOC: JER 16:24
PROC: 3E0233Z Introduction of Anti-inflammatory into Muscle, Percutaneous Approach (ICD-10-PCS; principal; 2023-09-11)
DX: S05.01XA Injury of conjunctiva and corneal abrasion without foreign body, right eye, initial encounter (principal); S80.912A Unspecified superficial injury of left knee, initial encounter; M70.42 Prepatellar bursitis, left knee; M54.50 Low back pain, unspecified; Y04.0XXA Assault by unarmed brawl or fight, initial encounter
CPT/HCPCS: 73564-TC-LT-FY; 96372; 99284-25

== ENCOUNTER 2023-09-13 07:07 | Emergency (ER) | payer OTHER ==
[2023-09-13 07:14] VITALS: BP 132/87; PULSE 90; RESP 18; TEMP 98.6; BMI 28.2
[2023-09-13] MEDS ORDERED: KETOROLAC TROMETHAMINE 30 MG/1 ML VIAL ONE (07:55)
[2023-09-13] MEDS: KETOROLAC TROMETHAMINE 30 MG/1 ML VIAL IM ONE (08:04)
[2023-09-13] MEDS ORDERED: BACITRACIN ZINC 15 GM TUBE TOPICAL OINTMENT ONE (08:19)
[2023-09-13] MEDS: BACITRACIN ZINC 15 GM TUBE TOPICAL OINTMENT TP ONE (08:28)
== END 2023-09-13 08:47 | disposition home or self-care (01) ==
LOC: JER 07:07
PROC: 3E0233Z Introduction of Anti-inflammatory into Muscle, Percutaneous Approach (ICD-10-PCS; principal; 2023-09-13)
DX: M54.50 Low back pain, unspecified (principal); G89.29 Other chronic pain; Z48.01 Encounter for change or removal of surgical wound dressing; S61.411D Laceration without foreign body of right hand, subsequent encounter; Y04.8XXA Assault by other bodily force, initial encounter
CPT/HCPCS: 99284-25

== ENCOUNTER 2023-09-19 06:22 | Emergency (ER) | payer OTHER ==
[2023-09-19 06:48] VITALS: BP 125/79; PULSE 79; RESP 14; TEMP 98.4; BMI 26.2
[2023-09-19 08:06] LABS: BASO % 0.9 % (0-2.0); EOS % 3.2 % (0-4.5); HEMATOCRIT 38.7 % (35.4-49); LYMPH % 13.9 % (8-40); MCH 32.1 pg (25.7-33.7); MCHC 33.5 g/dl (32.0-35.9); MEAN PLT VOLUME 7.2 fl (7.5-11.1); MONO % 9.1 % (3.8-10.2); NEUT % 72.9 % (42.8-82.8); PLATELET COUNT 221 10^3/uL (134-434); RBC 4.03 M/mm3 (4.00-5.60); RDW 12.6 % (11.9-15.9); WHITE BLOOD COUNT 6.8 K/mm3 (4.0-10.0)
[2023-09-19 08:30] LABS: CALCIUM 8.8 mg/dL (8.5-10.1); POTASSIUM 3.9 mmol/L (3.5-5.1)
[2023-09-19 08:31] LABS: ALBUMIN 3.6 g/dl (3.4-5.0); BLOOD UREA NITROGEN 17.1 mg/dL (7-18)
[2023-09-19 08:34] LABS: CREATININE 1.1 mg/dL (0.55-1.3)
[2023-09-19 08:36] LABS: BILIRUBIN,TOTAL 0.9 mg/dL (0.2-1); TOT PROT 7.4 g/dl (6.4-8.2)
[2023-09-19] MEDS ORDERED: CLINDAMYCIN 600MG PREMIX IVPB 600 MG/50 ML BAG IVPB ONE (08:39)
[2023-09-19] MEDS: CLINDAMYCIN 600MG PREMIX IVPB 600 MG/50 ML BAG IVPB ONE (08:47)
[2023-09-19 08:53] LABS: INR 1.05 (0.83-1.09); PROTHROMBIN TIME (PATIENT) 11.9 SEC (9.7-13.0)
== END 2023-09-19 10:30 | disposition short-term general hospital (02) ==
LOC: JER 06:22
DX: T81.49XA Infection following a procedure, other surgical site, initial encounter (principal); X58.XXXA Exposure to other specified factors, initial encounter
CPT/HCPCS: 0241U-QW; 36415; 73130-TC-RT-FY; 80053; 85025; 85610; 87040; 87070; 87186; 87205; 99285-25

== ENCOUNTER 2023-09-20 23:08 | Emergency (ER) | payer OTHER ==
[2023-09-20 23:46] VITALS: BP 112/69; PULSE 77; RESP 20; TEMP 98.7; BMI 27.5
[2023-09-21] MEDS ORDERED: CEPHALEXIN 250 MG/5 ML ORAL SUSPENSION PO ONE (00:57)
[2023-09-21] MEDS ORDERED: BACITRACIN 0.9 GM PACKET TP ONE (01:00)
[2023-09-21] MEDS ORDERED: BACITRACIN ZINC 15 GM TUBE TOPICAL OINTMENT ONE (01:01)
[2023-09-21] MEDS ORDERED: CEPHALEXIN MONOHYDRATE 500 MG CAPSULE (UD) ONE (01:01)
[2023-09-21] MEDS: CEPHALEXIN MONOHYDRATE 500 MG CAPSULE (UD) PO ONE (01:04)
[2023-09-21] MEDS ORDERED: KETOROLAC TROMETHAMINE 15 MG/ML VIAL ONE (01:12)
[2023-09-21] MEDS: KETOROLAC TROMETHAMINE 15 MG/ML VIAL IM ONE (01:28)
[2023-09-21] MEDS: BACITRACIN ZINC 15 GM TUBE TOPICAL OINTMENT TP ONE (01:28)
== END 2023-09-21 01:55 | disposition home or self-care (01) ==
LOC: JER 23:08
PROC: 3E0133Z Introduction of Anti-inflammatory into Subcutaneous Tissue, Percutaneous Approach (ICD-10-PCS; principal; 2023-09-21)
DX: M79.641 Pain in right hand (principal); S61.411D Laceration without foreign body of right hand, subsequent encounter; R68.83 Chills (without fever)
CPT/HCPCS: 99284-25

== ENCOUNTER 2023-09-21 07:26 | Emergency (ER) | payer OTHER ==
[2023-09-21 07:34] VITALS: BP 137/93; PULSE 70; RESP 18; TEMP 98.8; BMI 27.5
== END 2023-09-21 07:53 | disposition left against medical advice (07) ==
LOC: JER 07:26
DX: Z53.21 Procedure and treatment not carried out due to patient leaving prior to being seen by health care provider (principal)
CPT/HCPCS: 99281-25